=== PATIENT | female | born 1965 | race African-American/Black ===

== ENCOUNTER 2017-11-22 21:58 | Emergency (ER) | payer OTHER ==
[~2017-11-22] VITALS: Ht 162.6 cm; Wt 77.1 kg
[~2017-11-22 21:58] MED LIST: COLACE100 MG PO; HYDROCHLOROTHIA25 M2 PO; IBUPROFEN 200200 M1 PO; MIRALAX255 GM PO; NAPROSYN500 MG PO; PERCOCET PO; TORADOL 10 MG T10 MG PO; TUSSIONEX PENN473 ML PO; VICODIN 5-3001 EACH PO
[2017-11-22] MEDS ORDERED: MSL20MG/ML PO ×2 (22:09)
[2017-11-22 23:17] LABS: URINE BILIRUBIN NEGATIVE (Negative); URINE BLOOD NEGATIVE (Negative); URINE CLARITY CLEAR; URINE COLOR YELLOW; URINE GLUCOSE-RANDOM* NEGATIVE (Negative); URINE KETONES NEGATIVE (Negative); URINE LEUKOCYTES-REFLEX NEGATIVE (Negative); URINE NITRITE-REFLEX NEGATIVE (Negative); URINE PROTEIN (DIPSTICK) NEGATIVE (Negative); URINE SPECIFIC GRAVITY 1.025 (1.005-1.035)
[2017-11-22] MEDS ORDERED: PERCOCET PO (23:30)
== END 2017-11-22 23:45 | disposition home or self-care (01) ==
LOC: ER 21:58
PROVIDERS: Emergency Medicine
DX: M51.36 Other intervertebral disc degeneration, lumbar region (principal); F17.210 Nicotine dependence, cigarettes, uncomplicated; I10 Essential (primary) hypertension; M19.90 Unspecified osteoarthritis, unspecified site; Z88.6 Allergy status to analgesic agent; Z88.0 Allergy status to penicillin; Z90.710 Acquired absence of both cervix and uterus; Z90.49 Acquired absence of other specified parts of digestive tract

== ENCOUNTER 2017-11-28 08:58 | Emergency (ER) | payer OTHER ==
[~2017-11-28] VITALS: Ht 162.6 cm; Wt 77.1 kg
[~2017-11-28 08:58] MED LIST changes: +MSL20MG/ML PO
[2017-11-28 09:31] LABS: URINE BILIRUBIN NEGATIVE (Negative); URINE BLOOD NEGATIVE (Negative); URINE CLARITY CLEAR; URINE COLOR YELLOW; URINE GLUCOSE-RANDOM* NEGATIVE (Negative); URINE KETONES NEGATIVE (Negative); URINE LEUKOCYTES-REFLEX NEGATIVE (Negative); URINE NITRITE-REFLEX NEGATIVE (Negative); URINE PROTEIN (DIPSTICK) NEGATIVE (Negative); URINE SPECIFIC GRAVITY <= 1.005 (1.005-1.035)
[2017-11-28 09:45] LABS: ABSOLUTE NEUTROPHILS 3.3 thou/uL (1.4-8.2); BASOPHILS 1.2 % (0.0-2.0); HEMATOCRIT 45.5 % (37.0-47.0); HEMOGLOBIN 15.9 gm/dL (12.0-15.0); LYMPHOCYTES 28.9 % (24.0-44.0); MCH 30.6 pg (26.0-34.0); MCV 87.5 fL (80.0-100.0); MONOCYTES 7.3 % (1.0-8.0); PLATELET COUNT 218 thou/uL (150-400); POLYS 61.6 % (36.0-66.0); RDW 13.7 % (10.5-14.5); WBC 5.4 thou/uL (4.0-11.0)
[2017-11-28 09:49] LABS: CALCIUM 9.3 mg/dL (8.5-10.1); CREATININE 1.1 mg/dL (0.6-1.0); POTASSIUM 3.2 mmol/L (3.5-5.1)
[2017-11-28 09:55] LABS: ALBUMIN 3.7 g/dL (3.4-5.0); TOTAL PROTEIN 8.5 g/dL (6.4-8.2)
[2017-11-28] MEDS ORDERED: MORPHINE SULFAT15 M3 PO (10:08)
[2017-11-28] MEDS ORDERED: ONDANSETRON HCL4 M2 PO (10:30)
== END 2017-11-28 10:36 | disposition home or self-care (01) ==
LOC: ER 08:58
PROVIDERS: Emergency Medicine
DX: M54.5 Low back pain (principal); G89.29 Other chronic pain; R19.7 Diarrhea, unspecified; F17.210 Nicotine dependence, cigarettes, uncomplicated; I10 Essential (primary) hypertension; M19.90 Unspecified osteoarthritis, unspecified site; Z90.49 Acquired absence of other specified parts of digestive tract; Z88.6 Allergy status to analgesic agent; Z88.0 Allergy status to penicillin; Z90.710 Acquired absence of both cervix and uterus

== ENCOUNTER 2017-12-09 18:25 | Emergency (ER) | payer OTHER ==
[~2017-12-09] VITALS: Ht 162.6 cm; Wt 77.1 kg
[~2017-12-09 18:25] MED LIST changes: +MORPHINE SULFAT15 M3 PO; +ONDANSETRON HCL4 M2 PO
[2017-12-09] MEDS ORDERED: ZOFRAN ODT4 MG PO (18:59)
[2017-12-09] MEDS ORDERED: TORADOL 10 MG T10 MG PO (18:59)
[2017-12-09] MEDS ORDERED: CLONIDINE HCL0.3 M3 PO (18:59)
== END 2017-12-09 19:27 ==
LOC: ER 18:25
DX: F11.23 Opioid dependence with withdrawal (principal); G89.29 Other chronic pain; M54.5 Low back pain; R19.7 Diarrhea, unspecified; I10 Essential (primary) hypertension; M19.90 Unspecified osteoarthritis, unspecified site; F17.210 Nicotine dependence, cigarettes, uncomplicated; Z90.710 Acquired absence of both cervix and uterus; Z90.49 Acquired absence of other specified parts of digestive tract; Z88.6 Allergy status to analgesic agent; Z88.0 Allergy status to penicillin

== ENCOUNTER 2018-08-01 20:42 | Emergency (ER) | payer OTHER ==
[~2018-08-01] VITALS: Ht 162.6 cm; Wt 84.8 kg
[~2018-08-01 20:42] MED LIST changes: +CLONIDINE HCL0.3 M3 PO; +ZOFRAN ODT4 MG PO
[2018-08-01] MEDS ORDERED: NEURONTIN 400400 M1 PO (21:01)
[2018-08-01] MEDS ORDERED: VALIUM5 MG PO (22:21)
[2018-08-01] MEDS ORDERED: MOBIC15 MG PO (22:21)
[2018-08-01 22:55] VITALS: BP 142/98
== END 2018-08-01 22:56 | disposition home or self-care (01) ==
LOC: ER 20:42
DX: M54.31 Sciatica, right side (principal); F11.20 Opioid dependence, uncomplicated; F17.210 Nicotine dependence, cigarettes, uncomplicated; I10 Essential (primary) hypertension; Z90.710 Acquired absence of both cervix and uterus; M19.90 Unspecified osteoarthritis, unspecified site; Z90.49 Acquired absence of other specified parts of digestive tract; Z88.0 Allergy status to penicillin; Z88.6 Allergy status to analgesic agent

== ENCOUNTER 2019-05-06 02:54 | Emergency (ER) | payer OTHER ==
[~2019-05-06] VITALS: Ht 162.6 cm; Wt 99.3 kg
[~2019-05-06 02:54] MED LIST changes: +MACROBID 100 M100 M1 PO; +MOBIC15 MG PO; +NEURONTIN 400400 M1 PO; +OXAYDO5 MG PO; +PERCOCET 10-321 EACH PO; +SENOKOT-S1 TA1 PO; +VALIUM5 MG PO
[2019-05-06] MEDS ORDERED: ZOFRAN ODT4 MG PO (04:02)
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
== END 2019-05-06 04:25 | disposition home or self-care (01) ==
LOC: ER 02:54
DX: R11.2 Nausea with vomiting, unspecified (principal); G89.29 Other chronic pain; M25.559 Pain in unspecified hip; I10 Essential (primary) hypertension; M19.90 Unspecified osteoarthritis, unspecified site; F17.210 Nicotine dependence, cigarettes, uncomplicated; Z90.49 Acquired absence of other specified parts of digestive tract; Z90.710 Acquired absence of both cervix and uterus; Z88.6 Allergy status to analgesic agent; Z88.0 Allergy status to penicillin